=== PATIENT | male | born 1980 | race Asian ===

== ENCOUNTER 2018-01-11 04:35 | Inpatient (IN) | payer MEDICAID ==
[~2018-01-11] VITALS: Ht 177.8 cm; Wt 85.8 kg
[2018-01-11 04:41] VITALS: Ht 177.8 cm; Wt 85.8 kg
[2018-01-11 05:24] LABS: BASOPHIL % 0.6 % (0-2); PLATELET COUNT 242 x10^3mcL (130-400); RED CELL DISTRIBUTION WIDTH 12.1 % (11.5-14.5)
[2018-01-11 05:25] LABS: UA SPECIFIC GRAVITY 1.025 (1.005-1.035); microscopic required? YES; urine erythrocyte TRACE (NEGATIVE)
[2018-01-11 06:27] LABS: T3 TOTAL 1.02 ng/mL
[2018-01-11 08:20] LABS: ALBUMIN 4.8 g/dL (3.4-5.0); ALKALINE PHOSPHATASE 91 U/L (46-116); ALT/SGPT 64 U/L (16-63); AST/SGOT 23 U/L (15-37); BILIRUBIN TOTAL 0.5 mg/dL (0.20-1.00); CALCIUM 9.4 mg/dL (8.5-10.1); CARBON DIOXIDE 21.9 mmol/L (21-32); CHLORIDE SERUM 103 mmol/L (98-107); CREATININE SERUM 0.8 mg/dL (0.7-1.3); GFR1 > 60 mL/min; GLUCOSE SERUM 296 mg/dL (74-106); LIPASE 1393 IU/L (73-393); SODIUM SERUM 137 mmol/L (136-145); TOTAL PROTEIN, SERUM 7.9 g/dL (6.4-8.2)
[2018-01-11 08:27] LABS: MAGNESIUM 2.1 mg/dL (1.8-2.4)
[2018-01-11 08:29] LABS: AMYLASE 120 U/L (25-115)
[2018-01-11 08:30] LABS: CHOLESTEROL 127 mg/dL (<200); CHOLESTEROL/HDL RATIO 7.5; HDL CHOLESTEROL 17 mg/dL (40-60); TRIGLYCERIDES 1393 mg/dL (<150)
[2018-01-11 08:34] VITALS: BP 153/95
[2018-01-11 08:39] LABS: FREE T4 1.12 ng/dL (0.76-1.46); FREE THYROXINE INDEX 2.9 ug/dL (1.4-4.5); T4(THYROXINE) 9.5 ug/dL (4.7-13.3)
[2018-01-11 13:16] LABS: AMPHETAMINE QUAL UR NONE DETECTED (See below)
[2018-01-11 16:33] VITALS: BP 137/94
[2018-01-11 20:14] VITALS: BP 134/86
[2018-01-12 04:55] VITALS: BP 126/78
[2018-01-12 06:34] LABS: CALCIUM 8.5 mg/dL (8.5-10.1); CARBON DIOXIDE 22.4 mmol/L (21-32); CHLORIDE SERUM 102 mmol/L (98-107); CREATININE SERUM 0.6 mg/dL (0.7-1.3); GFR1 > 60 mL/min; GLUCOSE SERUM 198 mg/dL (74-106); MAGNESIUM 2.1 mg/dL (1.8-2.4); PHOSPHOROUS 2.8 mg/dL (2.5-4.9); POTASSIUM SERUM 3.8 mmol/L (3.5-5.1); SODIUM SERUM 135 mmol/L (136-145)
[2018-01-12 06:35] LABS: PLATELET COUNT 207 x10^3mcL (130-400); RED CELL DISTRIBUTION WIDTH 12.4 % (11.5-14.5)
[2018-01-12 08:06] VITALS: BP 117/71
[2018-01-12 08:12] LABS: BAND NEUTROPHIL 1 % (0-10); BASOPHIL 1 % (0-2); MONOCYTE 1 % (0-7); SEGMENTED NEUTROPHILS 92 % (37-75)
[2018-01-12 08:14] LABS: PLATELET MORPHOLOGY PLATELETS DECREASED; rbc morphology (normal/abnorm) ABNORMAL (NORMAL)
[2018-01-12 13:06] VITALS: BP 119/71
[2018-01-12 17:01] VITALS: BP 123/71
[2018-01-12 20:24] VITALS: BP 116/73
[2018-01-13 05:47] VITALS: BP 135/86
[2018-01-13 06:25] LABS: CALCIUM 8.9 mg/dL (8.5-10.1); CARBON DIOXIDE 22.4 mmol/L (21-32); CHLORIDE SERUM 100 mmol/L (98-107); CREATININE SERUM 0.7 mg/dL (0.7-1.3); GFR1 > 60 mL/min; GLUCOSE SERUM 171 mg/dL (74-106); LIPASE 336 IU/L (73-393); MAGNESIUM 2.2 mg/dL (1.8-2.4); POTASSIUM SERUM 3.6 mmol/L (3.5-5.1); SODIUM SERUM 135 mmol/L (136-145)
[2018-01-13 09:14] VITALS: BP 125/78
[2018-01-13 10:42] LABS: PLATELET COUNT 210 x10^3mcL (130-400); RED CELL DISTRIBUTION WIDTH 12.8 % (11.5-14.5)
[2018-01-13 12:18] LABS: BAND NEUTROPHIL 1 % (0-10); MONOCYTE 5 % (0-7); SEGMENTED NEUTROPHILS 82 % (37-75)
[2018-01-13 12:19] LABS: PLATELET MORPHOLOGY PLATELETS NORMAL; rbc morphology (normal/abnorm) NORMAL (NORMAL)
[2018-01-13 16:29] VITALS: BP 125/87
[2018-01-13 20:38] VITALS: BP 125/77
[2018-01-14 05:22] VITALS: BP 121/78
[2018-01-14 06:54] LABS: CARBON DIOXIDE 21.8 mmol/L (21-32); CHLORIDE SERUM 103 mmol/L (98-107); CREATININE SERUM 0.7 mg/dL (0.7-1.3); GFR1 > 60 mL/min; GLUCOSE SERUM 168 mg/dL (74-106); POTASSIUM SERUM 3.7 mmol/L (3.5-5.1); SODIUM SERUM 139 mmol/L (136-145)
[2018-01-14 08:31] LABS: BASOPHIL % 0.3 % (0-2); PLATELET COUNT 207 x10^3mcL (130-400); RED CELL DISTRIBUTION WIDTH 12.5 % (11.5-14.5)
[2018-01-14 09:13] VITALS: BP 124/79
[2018-01-14 17:24] VITALS: BP 113/66
[2018-01-14 20:50] VITALS: BP 124/77
[2018-01-15 06:01] VITALS: BP 112/76
[2018-01-15 06:49] LABS: BASOPHIL % 0.3 % (0-2); PLATELET COUNT 230 x10^3mcL (130-400)
[2018-01-15 07:09] LABS: CALCIUM 8.9 mg/dL (8.5-10.1); CARBON DIOXIDE 25.5 mmol/L (21-32); CHLORIDE SERUM 103 mmol/L (98-107); CREATININE SERUM 0.7 mg/dL (0.7-1.3); GFR1 > 60 mL/min; GLUCOSE SERUM 231 mg/dL (74-106); POTASSIUM SERUM 3.6 mmol/L (3.5-5.1); SODIUM SERUM 138 mmol/L (136-145)
[2018-01-15 08:49] VITALS: BP 118/81
[2018-01-15] MEDS ORDERED: LOP600 PO (09:02)
[2018-01-15] MEDS ORDERED: METFORMIN HCL500 MG PO (09:03)
[2018-01-15] MEDS ORDERED: LEVAQUIN750 MG PO (09:03)
[2018-01-15] MEDS ORDERED: FLAGYL500 MG PO (09:04)
[2018-01-15 09:27] VITALS: BP 112/76
== END 2018-01-15 12:43 | disposition home or self-care (01) | DRG 720 ==
LOC: ED 04:35 → MU 05:30
PROVIDERS: Emergency Medicine; Internal Medicine
DX: A41.9 Sepsis, unspecified organism (principal); N17.0 Acute kidney failure with tubular necrosis; K85.90 Acute pancreatitis without necrosis or infection, unspecified; E11.65 Type 2 diabetes mellitus with hyperglycemia; E87.1 Hypo-osmolality and hyponatremia; E78.1 Pure hyperglyceridemia; K37 Unspecified appendicitis; Z68.26 Body mass index [BMI] 26.0-26.9, adult; Z87.891 Personal history of nicotine dependence; Z91.14 Patient's other noncompliance with medication regimen
CPT/HCPCS: 82962; 84439; J0744; J1815; J2185; J2270; J2765; J3490; J7030; J7120; Q0092; Q0162; Q9967

== ENCOUNTER 2018-03-12 20:35 | Inpatient (IN) | payer MEDICAID ==
[~2018-03-12] VITALS: Ht 180.3 cm; Wt 83.9 kg
[~2018-03-12 20:35] MED LIST: FLAGYL500 MG PO; LEVAQUIN750 MG PO; LOP600 PO; METFORMIN HCL500 MG PO
[2018-03-12 20:37] VITALS: Ht 180.3 cm; Wt 83.9 kg
[2018-03-12 21:45] LABS: PLATELET COUNT 247 x10^3mcL (130-400); RED CELL DISTRIBUTION WIDTH 12.7 % (11.5-14.5)
[2018-03-12 21:50] LABS: BAND NEUTROPHIL 5 % (0-10); MONOCYTE 2 % (0-7); SEGMENTED NEUTROPHILS 80 % (37-75)
[2018-03-12 21:51] LABS: PLATELET MORPHOLOGY PLATELETS NORMAL; rbc morphology (normal/abnorm) NORMAL (NORMAL)
[2018-03-12 21:52] LABS: CALCIUM 8.7 mg/dL (8.5-10.1); CARBON DIOXIDE 19.4 mmol/L (21-32); CHLORIDE SERUM 101 mmol/L (98-107); CREATININE SERUM 0.7 mg/dL (0.7-1.3); GFR1 > 60 mL/min; GLUCOSE SERUM 272 mg/dL (74-106); SODIUM SERUM 135 mmol/L (136-145)
[2018-03-12 21:55] LABS: ALBUMIN 4.6 g/dL (3.4-5.0); ALKALINE PHOSPHATASE 90 U/L (46-116); ALT/SGPT 55 U/L (16-63); AST/SGOT 22 U/L (15-37); BILIRUBIN TOTAL 0.48 mg/dL (0.20-1.00); TOTAL PROTEIN, SERUM 8.2 g/dL (6.4-8.2)
[2018-03-12 21:58] LABS: TRIGLYCERIDES 489 mg/dL (<150)
[2018-03-12 22:04] LABS: LIPASE 3080 IU/L (73-393)
[2018-03-12 23:25] VITALS: BP 153/97
[2018-03-12 23:50] LABS: FREE T4 1.2 ng/dL (0.76-1.46); FREE THYROXINE INDEX 3.2 ug/dL (1.4-4.5); T4(THYROXINE) 9.7 ug/dL (4.7-13.3)
[2018-03-13 00:02] LABS: MAGNESIUM 2.1 mg/dL (1.8-2.4); PHOSPHOROUS 3.9 mg/dL (2.5-4.9)
[2018-03-13 00:05] LABS: AMYLASE 256 U/L (25-115)
[2018-03-13 00:11] LABS: T3 TOTAL 0.93 ng/mL
[2018-03-13 00:36] LABS: CHOLESTEROL 282 mg/dL (<200); CHOLESTEROL/HDL RATIO 6.3; HDL CHOLESTEROL 45 mg/dL (40-60); TRIGLYCERIDES 6426 mg/dL (<150)
[2018-03-13 05:11] VITALS: BP 142/88
[2018-03-13 06:29] LABS: PLATELET COUNT 245 x10^3mcL (130-400); RED CELL DISTRIBUTION WIDTH 12.7 % (11.5-14.5)
[2018-03-13 07:41] LABS: CALCIUM 8.1 mg/dL (8.5-10.1); CARBON DIOXIDE 15.1 mmol/L (21-32); CHLORIDE SERUM 103 mmol/L (98-107); CREATININE SERUM 0.7 mg/dL (0.7-1.3); GFR1 > 60 mL/min; GLUCOSE SERUM 251 mg/dL (74-106); POTASSIUM SERUM 3.6 mmol/L (3.5-5.1); SODIUM SERUM 138 mmol/L (136-145)
[2018-03-13 07:52] LABS: AMYLASE 382 U/L (25-115)
[2018-03-13 07:58] LABS: LIPASE 4197 IU/L (73-393)
[2018-03-13 09:56] VITALS: BP 125/79
[2018-03-13 11:03] LABS: BAND NEUTROPHIL 0 % (0-10); BASOPHIL 0 % (0-2); MONOCYTE 3 % (0-7); SEGMENTED NEUTROPHILS 92 % (37-75)
[2018-03-13 11:04] LABS: PLATELET MORPHOLOGY PLATELETS NORMAL; rbc morphology (normal/abnorm) ABNORMAL (NORMAL)
[2018-03-13 12:26] LABS: UA SPECIFIC GRAVITY >=1.030 (1.005-1.035); microscopic required? YES; urine erythrocyte TRACE (NEGATIVE)
[2018-03-13 13:05] LABS: AMPHETAMINE QUAL UR NONE DETECTED (See below)
[2018-03-13 17:07] VITALS: BP 129/79
[2018-03-13 21:22] VITALS: BP 108/56
[2018-03-14 05:33] VITALS: BP 133/53
[2018-03-14 06:31] LABS: AMYLASE 84 U/L (25-115); CALCIUM 8.3 mg/dL (8.5-10.1); CARBON DIOXIDE 18.9 mmol/L (21-32); CHLORIDE SERUM 100 mmol/L (98-107); CREATININE SERUM 0.6 mg/dL (0.7-1.3); GFR1 > 60 mL/min; GLUCOSE SERUM 207 mg/dL (74-106); LACTIC DEHYDROGENASE (LDH) 205 U/L (100-190); LIPASE 643 IU/L (73-393); PHOSPHOROUS 2.1 mg/dL (2.5-4.9); POTASSIUM SERUM 3.6 mmol/L (3.5-5.1); SODIUM SERUM 132 mmol/L (136-145)
[2018-03-14 06:35] LABS: PLATELET COUNT 212 x10^3mcL (130-400)
[2018-03-14 09:59] LABS: CHOLESTEROL 187 mg/dL (<200)
[2018-03-14 10:00] LABS: CHOLESTEROL/HDL RATIO 6.9; HDL CHOLESTEROL 27 mg/dL (40-60); TRIGLYCERIDES 537 mg/dL (<150)
[2018-03-14 10:27] VITALS: BP 125/79
[2018-03-14 13:46] LABS: BAND NEUTROPHIL 15 % (0-10); BASOPHIL 0 % (0-2); MONOCYTE 3 % (0-7); SEGMENTED NEUTROPHILS 70 % (37-75)
[2018-03-14 13:47] LABS: burr cell (echinocyte) 1+; rbc morphology (normal/abnorm) ABNORMAL (NORMAL)
[2018-03-14 13:48] LABS: PLATELET MORPHOLOGY GIANT PLATELET SEEN; ovalocyte/elliptocyte 1+
[2018-03-14 16:53] VITALS: BP 119/77
[2018-03-14 21:18] VITALS: BP 118/79
[2018-03-15 05:40] VITALS: BP 119/79
[2018-03-15 06:19] LABS: PLATELET COUNT 195 x10^3mcL (130-400)
[2018-03-15 07:10] LABS: CALCIUM 8.2 mg/dL (8.5-10.1); CHLORIDE SERUM 103 mmol/L (98-107); CREATININE SERUM 0.6 mg/dL (0.7-1.3); GFR1 > 60 mL/min; GLUCOSE SERUM 153 mg/dL (74-106); LIPASE 260 IU/L (73-393); PHOSPHOROUS 2.1 mg/dL (2.5-4.9); POTASSIUM SERUM 3.2 mmol/L (3.5-5.1); SODIUM SERUM 135 mmol/L (136-145)
[2018-03-15 09:32] VITALS: BP 119/80
[2018-03-15 10:40] LABS: BAND NEUTROPHIL 19 % (0-10); BASOPHIL 0 % (0-2); MONOCYTE 6 % (0-7); PLATELET MORPHOLOGY LARGE PLATELET SEEN; SEGMENTED NEUTROPHILS 59 % (37-75); ovalocyte/elliptocyte 1+; rbc morphology (normal/abnorm) ABNORMAL (NORMAL)
[2018-03-15 17:24] VITALS: BP 113/72
[2018-03-15 20:40] VITALS: BP 127/83
[2018-03-16 06:09] VITALS: BP 132/81
[2018-03-16 06:40] LABS: PLATELET COUNT 228 x10^3mcL (130-400); RED CELL DISTRIBUTION WIDTH 13.2 % (11.5-14.5)
[2018-03-16 06:42] LABS: CALCIUM 8.4 mg/dL (8.5-10.1); CARBON DIOXIDE 22.3 mmol/L (21-32); CHLORIDE SERUM 106 mmol/L (98-107); CREATININE SERUM 0.6 mg/dL (0.7-1.3); GFR1 > 60 mL/min; GLUCOSE SERUM 170 mg/dL (74-106); POTASSIUM SERUM 3.4 mmol/L (3.5-5.1); SODIUM SERUM 139 mmol/L (136-145)
[2018-03-16 07:46] LABS: BILIRUBIN DIRECT 0.2 mg/dL (0.0-0.2); BILIRUBIN TOTAL 0.86 mg/dL (0.20-1.00); TOTAL PROTEIN, SERUM 6.3 g/dL (6.4-8.2)
[2018-03-16 07:59] LABS: ALBUMIN 2.7 g/dL (3.4-5.0)
[2018-03-16 10:04] VITALS: BP 134/87
[2018-03-16 12:11] LABS: BAND NEUTROPHIL 17 % (0-10); BASOPHIL 0 % (0-2); MONOCYTE 6 % (0-7); SEGMENTED NEUTROPHILS 62 % (37-75)
[2018-03-16 12:12] LABS: ovalocyte/elliptocyte 1+; rbc morphology (normal/abnorm) ABNORMAL (NORMAL)
[2018-03-16 17:34] VITALS: BP 115/82
[2018-03-16 20:27] VITALS: BP 137/88
[2018-03-17 05:13] VITALS: BP 138/94
[2018-03-17 08:15] LABS: BASOPHIL % 0.2 % (0-2); PLATELET COUNT 251 x10^3mcL (130-400); RED CELL DISTRIBUTION WIDTH 12.7 % (11.5-14.5)
[2018-03-17 08:56] LABS: CALCIUM 8.2 mg/dL (8.5-10.1); CARBON DIOXIDE 23.9 mmol/L (21-32); CHLORIDE SERUM 103 mmol/L (98-107); CREATININE SERUM 0.8 mg/dL (0.7-1.3); GFR1 > 60 mL/min; GLUCOSE SERUM 159 mg/dL (74-106); POTASSIUM SERUM 3.3 mmol/L (3.5-5.1); SODIUM SERUM 135 mmol/L (136-145)
[2018-03-17 09:25] VITALS: BP 139/94
[2018-03-17 13:31] VITALS: BP 148/79
[2018-03-17 17:20] VITALS: BP 145/91
[2018-03-17 21:35] VITALS: BP 128/83
[2018-03-18 05:35] VITALS: BP 136/93
[2018-03-18 07:32] LABS: CALCIUM 8.7 mg/dL (8.5-10.1); CARBON DIOXIDE 22.6 mmol/L (21-32); CHLORIDE SERUM 105 mmol/L (98-107); CREATININE SERUM 0.6 mg/dL (0.7-1.3); GFR1 > 60 mL/min; GLUCOSE SERUM 162 mg/dL (74-106); POTASSIUM SERUM 3.4 mmol/L (3.5-5.1); SODIUM SERUM 138 mmol/L (136-145)
[2018-03-18 07:53] LABS: BASOPHIL % 0.3 % (0-2); PLATELET COUNT 266 x10^3mcL (130-400); RED CELL DISTRIBUTION WIDTH 12.9 % (11.5-14.5)
[2018-03-18 09:16] VITALS: BP 142/91
[2018-03-18] MEDS ORDERED: LIPI10 PO (10:04)
[2018-03-18] MEDS ORDERED: LOP600 PO (10:04)
[2018-03-18] MEDS ORDERED: METFORMIN HCL500 MG PO (10:05)
[2018-03-18] MEDS ORDERED: LEVOFLOXACIN500 M1 PO (10:06)
[2018-03-18] MEDS ORDERED: FLA500 PO (10:06)
[2018-03-18] MEDS ORDERED: CULTURELLE1 EACH PO (10:07)
[2018-03-18 12:47] VITALS: BP 142/91
== END 2018-03-18 13:37 | disposition home or self-care (01) | DRG 720 ==
LOC: ED 20:35 → MU 22:20
PROVIDERS: Emergency Medicine; Family Medicine; Internal Medicine
DX: A41.9 Sepsis, unspecified organism (principal); K85.90 Acute pancreatitis without necrosis or infection, unspecified; E44.0 Moderate protein-calorie malnutrition; K76.0 Fatty (change of) liver, not elsewhere classified; E11.65 Type 2 diabetes mellitus with hyperglycemia; K29.80 Duodenitis without bleeding; E83.51 Hypocalcemia; E87.6 Hypokalemia; E87.1 Hypo-osmolality and hyponatremia; E78.1 Pure hyperglyceridemia; E83.39 Other disorders of phosphorus metabolism; Z68.26 Body mass index [BMI] 26.0-26.9, adult; F17.210 Nicotine dependence, cigarettes, uncomplicated; Z91.14 Patient's other noncompliance with medication regimen; Z79.84 Long term (current) use of oral hypoglycemic drugs
CPT/HCPCS: 82962; 83880; 84439; 90658; C9113; G0480; J1170; J1885; J2185; J2270; J2405; J3490; J7030; Q0092; Q9967

== ENCOUNTER 2018-09-27 02:58 | Inpatient (IN) | payer MEDICAID ==
[~2018-09-27] VITALS: Ht 177.8 cm; Wt 86.7 kg
[~2018-09-27 02:58] MED LIST changes: +CULTURELLE1 EACH PO; +FLA500 PO; +LEVOFLOXACIN500 M1 PO; +LIPI10 PO
[2018-09-27 03:07] VITALS: Ht 177.8 cm; Wt 86.7 kg
--- NOTE | 2018-09-27 03:52 | NUR ---
PATIENT SEEN WITH COMPLAINT OFUPPER ABDOMINAL PAIN, EXPRESS HE THINKD IT IS PANCREATITIS. PATIENT WAS SEEN BY MD. SALINE LOCK INSERTED. PATIENT MEDICATED WITH ZOFRAN.AND TORADOL IVP. SALINE BOLUS IS INFUSING.
--- NOTE | 2018-09-27 03:55 | NUR ---
PATIENT IS SLEEPING AT THIS TIME.
[2018-09-27 04:07] LABS: PLATELET COUNT 267 x10^3mcL (130-400); RED CELL DISTRIBUTION WIDTH 12.1 % (11.5-14.5)
[2018-09-27 04:35] LABS: CARBON DIOXIDE 10.2 mmol/L (21-32); CHLORIDE SERUM 95 mmol/L (98-107); GFR1 > 60 mL/min; GLUCOSE SERUM 414 mg/dL (74-106); POTASSIUM SERUM 3.8 mmol/L (3.5-5.1); SODIUM SERUM 132 mmol/L (136-145)
[2018-09-27 04:36] LABS: LIPASE 1238 IU/L (73-393)
[2018-09-27 04:38] LABS: MONOCYTE 2 % (0-7); SEGMENTED NEUTROPHILS 88 % (37-75)
[2018-09-27 04:40] LABS: acanthocyte (spur cell) 2+; rbc morphology (normal/abnorm) ABNORMAL (NORMAL)
[2018-09-27 04:41] LABS: PLATELET MORPHOLOGY PLATELETS NORMAL
--- NOTE | 2018-09-27 05:00 | NUR ---
BICARB X2 AND REGULAR INSULIN GIVEN . BLOOD SUGAR WAS 268 MG/DL. 3 LITER OF FLUID BOLUS STARTED.
--- NOTE | 2018-09-27 05:30 | NUR ---
INSULIN DRIP STARTED AT 3 U/HR. # 4 SALINE BOLUS IS INFUSING.
--- NOTE | 2018-09-27 06:00 | NUR ---
FINGERSTICK IS 202 MG/DL INSULIN DRIP RATE CHANGE TO 2U/HR.
--- NOTE | 2018-09-27 07:10 | NUR ---
ACCUCHECK 0S 209 MG/DL.
--- NOTE | 2018-09-27 07:25 | NUR ---
REPORT WAS GIVEN TO FREDDY. PATIRNE WILL BE TRANSPORTED TO ICU -4. fAMILY ASKING IV PAIN MEDICATION. RESIDENT PAGED.
[2018-09-27 07:26] LABS: T3 TOTAL 0.92 ng/mL
--- NOTE | 2018-09-27 07:45 | NUR ---
D5 1/2 NS NOT INFUSING AT THIS TIME
--- NOTE | 2018-09-27 07:45 | NUR ---
PATIENT WAS BROUGHT INTO ICU, FROM THE ER, ACCOMPANIED BY AN RN AND EMT. PATIENT WAS BROUGHT VIA GUERNEY. PATIENT IS ALERT AND ORIENTED TO PERSON, PLACE AND TIME. PATIENT IS ABLE TO FOLLOW COMMANDS, TACTILE, VOICE AND PAIN. PATIENT IS MANDARIN SPEAKING, TRUCK OPERATOR PHONE USED AND AT BEDSIDE. PATIENT HAS NS INFUSING AT 150 ML/HR, AND INSULIN DRIP, O.1 UNITS/KG/HR. PATIENT HAD IVS LOCATED TO LFA AND RIGHT HAND. IVS INTACT AND PATENT. D5 1/2 NS OFF AT THIS TIME. BOILER SETTER IN PLACE, ST. ABD SOFT AND ROUND. NO WOUNDS NOTED, SKIN INTACT. PATIENTS CELL PHONE AT BEDSIDE. AT BEDSIDE. PATIENT STABLE, BED TO THE LOWEST POSITION, HEELS OFF LOADED WITH PILLOWS, WILL CONTINUE TO MONITOR.
[2018-09-27 08:01] LABS: FREE T4 1.08 ng/dL (0.76-1.46)
[2018-09-27 08:02] LABS: CHOLESTEROL 299 mg/dL (<200); HDL CHOLESTEROL 20 mg/dL (40-60); MAGNESIUM 1.9 mg/dL (1.8-2.4); PHOSPHOROUS 2.3 mg/dL (2.5-4.9)
[2018-09-27 08:15] LABS: TRIGLYCERIDES 3727 mg/dL (<150)
[2018-09-27 08:16] LABS: T4(THYROXINE) 6.4 ug/dL (4.7-13.3)
--- NOTE | 2018-09-27 09:01 | NUR ---
DR. BIANCHI, DR. QUEZADA, SUPERVISOR TUNNEL HEADING AND PRIMARY RN AT BEDSIDE FOR MORNING ROUNDS. PLAN OF CARE DISCUSSED. WILL CONT TO MONITOR.
[2018-09-27 09:03] VITALS: BP 154/88
--- NOTE | 2018-09-27 10:15 | NUR ---
PATIENTS BS: 187, CHANGING TO D5 1/2 NS AT THIS TIME, AND LOWERING INSULIN TO 0.05 UNITS/KG/HR. PATIENT STABLE, WILL CONTINUE TO MONITOR.
[2018-09-27 12:27] LABS: CALCIUM 7.3 mg/dL (8.5-10.1); CARBON DIOXIDE 14.7 mmol/L (21-32); CHLORIDE SERUM 104 mmol/L (98-107); CREATININE SERUM 0.6 mg/dL (0.7-1.3); GFR1 > 60 mL/min; GLUCOSE SERUM 269 mg/dL (74-106); MAGNESIUM 1.9 mg/dL (1.8-2.4); PHOSPHOROUS 2.1 mg/dL (2.5-4.9); POTASSIUM SERUM 3.7 mmol/L (3.5-5.1); SODIUM SERUM 135 mmol/L (136-145)
[2018-09-27 12:43] VITALS: BP 152/88
--- NOTE | 2018-09-27 13:05 | NUR ---
LUNCH TRAY ARRIVED, PATIENT STATED THAT THEY ARE NOT HUNGRY. BED USED FOR INTERPRETATION.
--- NOTE | 2018-09-27 14:37 | NUR ---
Discount pharmacy card and list to low cost medical clinics given to patient by Addy.
[2018-09-27 15:09] VITALS: BP 149/90
[2018-09-27 16:18] LABS: CALCIUM 8.5 mg/dL (8.5-10.1); CARBON DIOXIDE 20.1 mmol/L (21-32); CHLORIDE SERUM 105 mmol/L (98-107); CREATININE SERUM 0.6 mg/dL (0.7-1.3); GFR1 > 60 mL/min; GLUCOSE SERUM 240 mg/dL (74-106); MAGNESIUM 1.8 mg/dL (1.8-2.4); PHOSPHOROUS 2.4 mg/dL (2.5-4.9); POTASSIUM SERUM 3.3 mmol/L (3.5-5.1); SODIUM SERUM 137 mmol/L (136-145)
--- NOTE | 2018-09-27 18:58 | NUR ---
REPORT GIVEN TO CATALINA ZUNIGA ALL QUESTIONS ANSWERED.
--- NOTE | 2018-09-27 19:00 | NUR ---
RECEIVED REPORT FROM CORA ARNOLD. ASSUMING ALL CARE
[2018-09-27 19:30] VITALS: BP 128/85
--- NOTE | 2018-09-27 19:30 | NUR ---
RECEIVED PT LAYING IN BED. PT IS AWAKE/ALERT. LANGUAGE BARRIER-MANDARIN SPEAKING. RESPONDS TO COMMAND PUPILS WITH BRISK RESPONSE TO LIGHT. PERRLA NOTED BILAT. BREATHING IS E/U ON RA. LUNGS SOUND CLEAR BILAT. SYMMETRICAL CHEST EXPANSION NOTED. S1/S2 HEART SOUNDS AUSCULTATED. CHEST WALL EQUAL AND SYMMETRICAL. NO S/S OF CP NOTED. HR 115, BP 128/85, MAP 97. CHEST WALL STABLE. PALPABLE PULSES X4 EXTREMITIES. SKIN IS WARM AND DRY. NO EDEMA NOTED. LFA AND RH IV IN PLACE WITH NO S/S OF INFILTRATION NOTED. D5 1/2NS INFUSING @ 150 ML/HR. INSULIN DRIP INFUSING @ 0.05 UNITS/KG/HR. CAP REFILL < 3 SECS. PT ON CLEAR LIQUID DIET. NO N/V NOTED. ABD IS SOFT, FLAT, NONTENDER TO PALPATION. BOWEL SOUNDS HYPOACTIVE X4 QUADRANTS. NO BM NOTED. PT VOIDS FREELY VIA URINAL. NO SCROTAL EDEMA NOTED. SKIN IS INTACT. PT ABLE TO REPOSITION SELF INDEPENDENTLY. PT IS CALM AND COOPERATIVE. BED IN LOW POSITION. CALL LIGHT IN REACH. WILL CONT TO MONITOR
--- NOTE | 2018-09-27 20:02 | NUR ---
PRINCIPAL TECHNICAL SPECIALIST AT BEDSIDE FOR LAB DRAW
--- NOTE | 2018-09-27 20:10 | NUR ---
BS 227. D5 1/2 NS TITRATED TO 100 ML/HR
[2018-09-27 20:24] LABS: CALCIUM 8.7 mg/dL (8.5-10.1); CARBON DIOXIDE 21.7 mmol/L (21-32); CHLORIDE SERUM 106 mmol/L (98-107); CREATININE SERUM 0.6 mg/dL (0.7-1.3); GFR1 > 60 mL/min; GLUCOSE SERUM 232 mg/dL (74-106); MAGNESIUM 1.9 mg/dL (1.8-2.4); PHOSPHOROUS 2.5 mg/dL (2.5-4.9); POTASSIUM SERUM 3.4 mmol/L (3.5-5.1); SODIUM SERUM 137 mmol/L (136-145)
--- NOTE | 2018-09-27 20:30 | NUR ---
DR. DESIR MADE AWARE PT'S GAP HAS CLOSED TWICE. PER, DR. DESIR, WILL ORDER LONG ACTING INSULIN
[2018-09-27 23:30] VITALS: BP 131/80
--- NOTE | 2018-09-28 00:12 | NUR ---
PT C/O GEN ABD PAIN. PT MEDICATED WITH TORADOL IVP PER EMAR
[2018-09-28 00:33] LABS: CALCIUM 8.1 mg/dL (8.5-10.1); CARBON DIOXIDE 24.7 mmol/L (21-32); CHLORIDE SERUM 104 mmol/L (98-107); CREATININE SERUM 0.6 mg/dL (0.7-1.3); GFR1 > 60 mL/min; GLUCOSE SERUM 194 mg/dL (74-106); MAGNESIUM 1.8 mg/dL (1.8-2.4); PHOSPHOROUS 2.4 mg/dL (2.5-4.9); POTASSIUM SERUM 3.2 mmol/L (3.5-5.1); SODIUM SERUM 137 mmol/L (136-145)
--- NOTE | 2018-09-28 00:35 | NUR ---
D5 1/2 NS TURNED OFF AT THIS TIME AND NS INFUSION INITIATED @ 100 ML/HR
[2018-09-28 03:11] VITALS: BP 118/79
--- NOTE | 2018-09-28 04:05 | NUR ---
MICROWAVE ENGINEER AT BEDSIDE FOR BLOOD DRAW
[2018-09-28 04:27] LABS: PLATELET COUNT 188 x10^3mcL (130-400); RED CELL DISTRIBUTION WIDTH 12.5 % (11.5-14.5)
[2018-09-28 04:31] LABS: CALCIUM 8.1 mg/dL (8.5-10.1); CARBON DIOXIDE 25.9 mmol/L (21-32); CHLORIDE SERUM 105 mmol/L (98-107); CREATININE SERUM 0.6 mg/dL (0.7-1.3); GFR1 > 60 mL/min; GLUCOSE SERUM 171 mg/dL (74-106); MAGNESIUM 1.8 mg/dL (1.8-2.4); POTASSIUM SERUM 3.2 mmol/L (3.5-5.1); SODIUM SERUM 139 mmol/L (136-145)
[2018-09-28 04:41] LABS: MONOCYTE 3 % (0-7); SEGMENTED NEUTROPHILS 83 % (37-75)
[2018-09-28 04:44] LABS: PLATELET MORPHOLOGY PLATELETS NORMAL; rbc morphology (normal/abnorm) NORMAL (NORMAL)
--- NOTE | 2018-09-28 05:42 | NUR ---
REOPRT GIVEN TO CATHERINE ARNOLD FOR CONTINUITY OF CARE. ALL QUESTIONS/CONCERNS ADDRESSED AT THIS TIME
--- NOTE | 2018-09-28 06:39 | NUR ---
DR. QUEZADA AT BEDSIDE FOR MSE. UPDATED ON PT'S STATUS OVER NIGHT.
--- NOTE | 2018-09-28 07:11 | NUR ---
REPORT RECIEVED FROM NATI ARNOLD, WILL RESUME CARE.
--- NOTE | 2018-09-28 07:13 | NUR ---
REPORT GIVEN TO MIN RN FOR CONTINUITY OF CARE
[2018-09-28 07:14] VITALS: BP 120/77
--- NOTE | 2018-09-28 08:33 | NUR ---
PT REPORT LLQ ABD PAIN 7/10 AND REQUESTED PAIN MEDICATION. WILL MEDICATE PER EMAR.
[2018-09-28 08:51] LABS: CALCIUM 8.4 mg/dL (8.5-10.1); CARBON DIOXIDE 21.2 mmol/L (21-32); CHLORIDE SERUM 107 mmol/L (98-107); CREATININE SERUM 0.6 mg/dL (0.7-1.3); GFR1 > 60 mL/min; GLUCOSE SERUM 183 mg/dL (74-106); MAGNESIUM 1.8 mg/dL (1.8-2.4); PHOSPHOROUS 2.9 mg/dL (2.5-4.9); POTASSIUM SERUM 3.5 mmol/L (3.5-5.1); SODIUM SERUM 139 mmol/L (136-145)
--- NOTE | 2018-09-28 09:54 | NUR ---
REPORT GIVEN TO JARETH ARNOLD. PT WILL BE TRANSFERRING TO ROOM 201B ON WHEEL CHAIR ON ROOM AIR.
--- NOTE | 2018-09-28 10:15 | NUR ---
RECIEVED PT FROM ICU NURSE CATALINA WISEMAN. PT A/O X4 DENIES ANY WHITE OR DIZZINESS. PT AMBULATORY. AT BEDSIDE. MICHAEL SPEAKING WITH SOME GHANAIAN. LUNGS CTA, NO SOB NOTED. TELE MONITOR #19 CONNECTED TO PT. DENIES ANY CP OR PRESSURE AT THIS TIME. LFA IV INTACT AND PATENT WITH NO REDNESS OR INFLAMMATION NOTED. VS WNL. SAFETY PRECAUTIONS IN PLACE. CALL LIGHT WITHIN REACH. WILL MONITOR.
--- NOTE | 2018-09-28 13:30 | NUR ---
PT RESTING COMFORTABLY IN BED AT THIS TIME. NO C/O PAIN OR DISTRESS NOTED. SAFETY PRECAUTIONS IN PLACE. CALL LIGHT WITHIN REACH. WILL MONITOR.
--- NOTE | 2018-09-28 14:35 | NUR ---
Initial Nutrition Assessment- IC04/A JEN ABREU IA HR Dx: DKA, Acute pancreatitis PMHx: DM, Hypertriglyceridemia, Pancreatitis PSHx: none Labs: BG 171H, K 3.2L, WBC 21.8H Meds: D50%, Glucophage, Humulin, lantus, Lipitor, zofran Diet: CLD PO Intake: (09/27) dinner 80% Ht: 177.8 cm (70") Wt: 86.7 kg (190#) BMI: 27.4 kg/m2 (overweight) Bed scale: 189.6# IBW: 166# (75 kg) %IBW: 114 UBW: 185-190# Age: 38/M Food Allergies: NKFA Skin: intact Juan: 20 Edema: none GI: Last BM: none noted Trigger: N/V/D x 3d, unintentional weight loss >10# x 1month Per H&P, pt is a 38 year old male with past medical history of hypertriglyceridemia, diabetes, and pancreatitis presents to the ED with worsening epigastric pain for one day. Patient states pain began yesterday around noon while he was driving, 01/15, sharp associated with 7-8 episodes of nonbloody/nonbilious vomiting and loss of appetite. Patient was last admitted in Nov last year for pancreatitis. Pt only takes Metformin for his diabetes and not on Insulin. RDN visit (09/28): pt is mandarin speaking and he said that he cannot speak/read Wallisian. Used [employer] to facilitate communication. Pt said that he does not have any N/V but has diarrhea. Pt has poor appetite and is currently on clear liquid diet. Per CATALINA Don pt has abdominal pain. Problem with: N: no V: no D: yes C: no Problems with: Chewing/Swallowing: no Current appetite: poor Recent wt change: none %wt change: none Vitamin/Supplement use: none Special diet at home: tries to avoid sugar Physical activity: unable to access d/t language barrier, inaccurate translation Education: Patient was having abd pain and said that he cannot read Wallisian therefore couldn't leave handout to read for later. Food/drug interaction: none at this time Estimated Nutritional Needs Based on actual body weight 86.7 kg Energy: 1358-4945 kcal/d (25-30 kcal/kg-maintenance) Protein: 86.7-104 g/d (1.0-1.2 g/kg)-maintenance and preservation of lean body mass Fluid: 4244-1170 ml/d (1 ml/kcal-fluid balance) or per doctor Nutrition Diagnosis 1. Inadequate oral intake related to pancreatitis/abd pain as evidenced by patient on clear liquid diet. Intervention 1. Recommend progressing to CCHO (mechanically soft-chopped) diet when medically appropriate/tolerated. Monitor/Evaluate Goal: PO intake at least 75% of estimated needs Monitor: PO intake, Labs, GI function F/U in 3-5 days as high risk
--- NOTE | 2018-09-28 14:35 | NUR ---
1. Recommend progressing to CCHO (mechanically soft-chopped) diet when medically appropriate/tolerated.
--- NOTE | 2018-09-28 16:30 | NUR ---
PT RESTING COMFORTABLY IN BED. DENIES ANY PAIN OR DISCOMFORT OF ANY KIND. SAFETY PRECAUTIONS IN PLACE. CALL LIGHT WITHIN REACH. WILL MONITOR.
[2018-09-28 17:19] VITALS: BP 106/65
--- NOTE | 2018-09-28 19:40 | NUR ---
Awake and verbally responsive. No respiratory distress noted on room air. Denies n/v. On and off LLQ abd.pain. Will cont.to monitor. Call light within reach.
--- NOTE | 2018-09-28 19:41 | NUR ---
PT STABLE AT THIS TIME. NO CP OR SOB. SAFETY PRECAUTIONS IN PLACE. IV INTACT AND PATENT. CALL LIGHT WITHIN REACH. ENDORSED CARE OVER TO BOX SPRING MAKER.
[2018-09-28 20:43] VITALS: BP 132/83
[2018-09-28 20:45] VITALS: BP 125/78
--- NOTE | 2018-09-29 03:53 | NUR ---
Afebrile. No significant change in condition noted. Denies n/v. Pain controlled after the morphine. In no apparent distress.
[2018-09-29 05:55] VITALS: BP 119/77
[2018-09-29 06:09] LABS: BASOPHIL % 0.4 % (0-2); PLATELET COUNT 183 x10^3mcL (130-400); RED CELL DISTRIBUTION WIDTH 12.8 % (11.5-14.5)
[2018-09-29 06:26] LABS: CALCIUM 8.7 mg/dL (8.5-10.1); CARBON DIOXIDE 20.9 mmol/L (21-32); CHLORIDE SERUM 108 mmol/L (98-107); CREATININE SERUM 0.6 mg/dL (0.7-1.3); GFR1 > 60 mL/min; GLUCOSE SERUM 144 mg/dL (74-106); LIPASE 194 IU/L (73-393); MAGNESIUM 1.8 mg/dL (1.8-2.4); PHOSPHOROUS 3.2 mg/dL (2.5-4.9); POTASSIUM SERUM 3.5 mmol/L (3.5-5.1); SODIUM SERUM 141 mmol/L (136-145)
--- NOTE | 2018-09-29 07:00 | NUR ---
RECIEVED PT RESTING COMFORTABLY IN BED. DENIES ANY CP OR PRESSURE. NO SOB NOTED. DENIES ANY PAIN AT THIS TIME. IV INTACT AND PATENT. SAFETY PRECAUTIONS IN PLACE. CALL LIGHT WITHIN REACH. WILL MONITOR.
[2018-09-29 08:03] VITALS: BP 116/77
--- NOTE | 2018-09-29 11:38 | NUR ---
VT C/O 11/14 ABD PAIN, MEDICATED WITH MORPHINE PER EMAR. WILL REASSESS.
--- NOTE | 2018-09-29 15:00 | NUR ---
PT RESTING COMFORTABLY IN BED AT THIS TIME. DENIES ANY DISCOMFORT OR DISTRESS. SAFETY PRECAUTIONS IN PLACE, CALL LIGHT WITHIN REACH, WILL MONITOR.
[2018-09-29 16:29] VITALS: BP 134/89
[2018-09-29 17:29] LABS: FREE THYROXINE INDEX 1.8 ug/dL (1.4-4.5)
--- NOTE | 2018-09-29 19:20 | NUR ---
REPORTED AND ENDORESED CARE TO NIGHT NURSE. PT DENIES ANY PAIN, DISTRESS, OR SOB AT THIS TIME. NO CP OR PRESSURE. A/O X4. BOTH IV'S INTACT AND PATENT WITH NO REDNESS OR INFLAMMATION. SAFETY PRECAUTIONS IN PLACE. CALL LIGHT WITHIN REACH. TOLERATED ALL CARES WELL AND STABLE AT THSITIME.
--- NOTE | 2018-09-29 19:20 | NUR ---
RECEIVED PT IN BED RESTING QUIETLY. HE IS ALERT,ORIENTED X4. NO SOB ON RA. BOWEL SOUNDS ACTIVE. HE DENIES ABDL PAIN AT THIS TIME. NO C/O N/V. W/ IVF NS AT 100 CC/HR VIA RT HAND. W/ HL TO LTAC. CALL LIGHT W/IN REACH.
[2018-09-29 20:39] VITALS: BP 141/92
--- NOTE | 2018-09-29 21:06 | NUR ---
PT MEDICATD W/MORPHINE SULFATE FOR C/O ABDL PAIN 11/14.
--- NOTE | 2018-09-29 23:24 | NUR ---
PT NOW C/O ABDL PAIN 12/15 AND STATED MORPHINE IS NOT HELPING VERY MUCH. DR. MATA INFORMED AND GAVE ORDER. MORPHINE SULFATE 2 MG IV GIVEN ORDERED.
--- NOTE | 2018-09-29 23:54 | NUR ---
PT VEBALIZED MINIMAL RELIEF OF PAIN FROM MORPHINE 2 MG IV. PT STATED PAIN IS 6/10.
--- NOTE | 2018-09-30 00:28 | NUR ---
PT NOW IS REQUESTING FOR NORCO FOR C/O ABDL PAIN 11/14. NORCO 7.5/325 MG PO GIVEN.
--- NOTE | 2018-09-30 01:28 | NUR ---
PT VERBALIZED MOD RELIEF OF PAIN FROM NORCO AND NOW AT 08/15.
--- NOTE | 2018-09-30 01:49 | NUR ---
PT REQUESTING FOR SLEEPING PILL. AMBIEN 5 MG PO GIVEN.
--- NOTE | 2018-09-30 03:00 | NUR ---
PT RESTING QUIETLY AND TRYING TO GO TO SLEEP. NO C/O PAIN AT THIS TIME.
--- NOTE | 2018-09-30 04:02 | NUR ---
PT C/O ABDL PAIN 11/14. MORPHINE SULFATE 1 MG IV GIVEN.
--- NOTE | 2018-09-30 05:10 | NUR ---
PT AWAKE MOST OF THE NIGHT. HE WAS MEDICATED FOR PAIN X3 W/ MINIMAL TO MOD. RELIEF. NO EPISODE OF N/V. HE HAD NO BM THIS SHIFT. ALL NEEDS ATTENDED TO.
[2018-09-30 05:43] VITALS: BP 138/84
[2018-09-30 06:28] LABS: BASOPHIL % 0.3 % (0-2); PLATELET COUNT 196 x10^3mcL (130-400); RED CELL DISTRIBUTION WIDTH 12.9 % (11.5-14.5)
[2018-09-30 06:49] LABS: CALCIUM 8.8 mg/dL (8.5-10.1); CARBON DIOXIDE 22.6 mmol/L (21-32); CHLORIDE SERUM 108 mmol/L (98-107); CREATININE SERUM 0.5 mg/dL (0.7-1.3); GFR1 > 60 mL/min; GLUCOSE SERUM 131 mg/dL (74-106); MAGNESIUM 1.9 mg/dL (1.8-2.4); PHOSPHOROUS 3.9 mg/dL (2.5-4.9); POTASSIUM SERUM 3.2 mmol/L (3.5-5.1); SODIUM SERUM 142 mmol/L (136-145)
--- NOTE | 2018-09-30 08:00 | NUR ---
SHIFT ASSESSMENT DONE. PATIENT A/A/OX4; NO RESP DISTRESS ON RA. DENIED CHEST PAIN. ABD FLAT/SOFT. HAD LOOSE BM YESTERDAY. FINISHED 60% OF FULL LIQUID DIET BREKFAST. NO N/V. BUT REPORTED LUQ ABD PAIN 4/10 AFTER BREAKFAST. IVF OF NS 100CC/HR. IV SITE TO RH INTACT. IVLH'S TO LAC. ENCOURAGE TO AMBULATE TOLERATED. CALL LIGHT IN REACH.
--- NOTE | 2018-09-30 08:25 | NUR ---
POTASSIUM LEVEL = 3.2; KCL 40 MEQ PO GIVEN PER ORDER.
[2018-09-30] MEDS ORDERED: METFORMIN HCL500 MG PO (09:09)
[2018-09-30] MEDS ORDERED: LIPI10 PO (09:10)
[2018-09-30] MEDS ORDERED: GEMFIBROZIL600 MG PO (09:10)
[2018-09-30] MEDS ORDERED: GOOD SENSE OMEP20 MG PO (09:13)
[2018-09-30 09:30] VITALS: BP 136/88
[2018-09-30 10:19] VITALS: BP 136/88
--- NOTE | 2018-09-30 14:14 | NUR ---
PATIENT HAD SOUND SLEEPING AFTER LUNCH. NO S/S OF PAIN.
--- NOTE | 2018-09-30 15:37 | NUR ---
D/C TO HOME PER ORDER. INSTRUCTION GIVEN. IV TO R HAND AND LAC D/C'D. BOTH OF OVER NEEDLE CATHETER INTACT. NO C/O ABD PAIN NOW. CONDITION STABLE.
== END 2018-09-30 15:36 | disposition home or self-care (01) | DRG 282 ==
LOC: ED 02:58 → IC 04:49 → MU 04:49 → IC 07:00 → MU 09-28 10:17
PROVIDERS: Emergency Medicine; ADMIT General Practice
DX: K85.90 Acute pancreatitis without necrosis or infection, unspecified (principal); R65.11 Systemic inflammatory response syndrome (SIRS) of non-infectious origin with acute organ dysfunction; E11.10 Type 2 diabetes mellitus with ketoacidosis without coma; E87.1 Hypo-osmolality and hyponatremia; E78.1 Pure hyperglyceridemia; E83.39 Other disorders of phosphorus metabolism; Z79.84 Long term (current) use of oral hypoglycemic drugs
CPT/HCPCS: 82962; 83880; 84439; J0295; J1815; J1885; J2270; J2405; J2765; J3010; J3490; J7030; Q0092